=== PATIENT | female | born 1995 | race Caucasian/White ===

== ENCOUNTER 2023-03-02 12:37 | Emergency (ER) | payer MEDICAID ==
[~2023-03-02] VITALS: Ht 162.6 cm; Wt 127.3 kg
[2023-03-02 13:28] LABS: COVID AG,FIA SOURCE NASAL SWAB
[2023-03-02] MEDS ORDERED: 0.9% SODIUM CHLORIDE 10 ML SYRINGE IVP PRN (13:30)
[2023-03-02] MEDS ORDERED: ACETAMINOPHEN 1000 MG/ISO-OSM 100 ML IV ONE (13:30)
[2023-03-02] MEDS ORDERED: SODIUM CHLORIDE 0.9% 3,800 ML IV ONE (13:30)
[2023-03-02 13:52] LABS: INFLUENZA TYPE A NEGATIVE FOR TYPE A (NEGATIVE); INFLUENZA TYPE B NEGATIVE FOR TYPE B (NEGATIVE)
[2023-03-02 14:37] LABS: BASOPHILS % (AUTO) 0.2 % (0.0-2.0); EOSINOPHILS % (AUTO) 0.6 % (1.0-6.0); HEMOGLOBIN 12.6 g/dL (12.0-16.0); LYMPHOCYTES # (AUTO) 0.3 K/uL (1.0-4.8); LYMPHOCYTES % (AUTO) 5.3 % (22.0-44.0); MEAN CORPUSCULAR HEMOGLOBIN 31.8 pg (26.0-34.0); MEAN CORPUSCULAR VOLUME 94 fL (80-100); MONOCYTES # (AUTO) 0.3 K/uL (0.1-1.0); MONOCYTES % (AUTO) 5.5 % (2.0-9.0); NEUTROPHILS # (AUTO) 5.4 K/uL (1.8-7.7); PLATELET COUNT (AUTO) 158 K/uL (150-450); RED BLOOD CELL COUNT(AUTO) 3.96 MIL/uL (4.00-5.20); RED CELL DISTRIBUTION WIDTH 13.8 % (11.5-14.5)
[2023-03-02 14:44] LABS: ANION GAP 12 mmol/L (8-16); CALCIUM, TOTAL 8.8 mg/dL (8.8-10.5); CARBON DIOXIDE 23 mmol/L (22-29); CHLORIDE 103 mmol/L (98-107); CREATININE 0.85 mg/dL (0.60-1.30); GLOMERULAR FILTR. RATE CALC > 60 mL/min (>60); GLUCOSE,RANDOM 101 mg/dL (70-110); POTASSIUM 3.2 mmol/L (3.5-5.1); SODIUM SERUM 138 mmol/L (136-145)
[2023-03-02 14:49] LABS: INR 1.1 (0.9-1.1); PROTHROMBIN TIME 11.6 SEC (9.4-11.6)
[2023-03-02 14:55] LABS: ALANINE AMINOTRANSFERASE 22 U/L (12-78); ALBUMIN 3.9 g/dL (3.4-5.0); ALKALINE PHOSPHATASE 88 U/L (46-116); ASPARTATE AMINOTRANSFERASE 20 U/L (15-37); HCG,QUANTITATIVE < 1 mIU/mL (0-6); LIPASE 35 U/L (73-393); TOTAL PROTEIN, SERUM 7.6 g/dL (6.4-8.2)
[2023-03-02 15:05] LABS: B-TYPE NATRIURETIC PEPTIDE 35 pg/mL (0-100); LACTIC ACID 0.9 mmol/L (0.4-2.0)
[2023-03-02 15:12] LABS: NEUTROPHILS % (AUTO) 88.4 % (40.0-70.0); PLATELET MORPHOLOGY COMMENT LARGE PLTS PRESENT
[2023-03-02] MEDS ORDERED: POTASSIUM CHLORIDE 20 MEQ ER TABLET PO ONE (15:15)
[2023-03-02 16:15] VITALS: BP 115/75; PULSE 120; RESP 18; TEMP 102.7
[2023-03-02] MEDS ORDERED: NIRM1TAB4 PO (16:16)
== END 2023-03-02 16:49 | disposition home or self-care (01) ==
LOC: EMS 12:41
DX: U07.1 COVID-19 (principal); Z98.890 Other specified postprocedural states
CPT/HCPCS: 99291; 96365; 71045; 87426; 80053; 83605; 83690; 83880; 84484; 84702; 85025; 85610; 85730; 87040; 87804; 36415; 93005; 84145; J7030; J0131

== ENCOUNTER 2024-11-17 21:15 | Emergency (ER) | payer MEDICAID ==
[~2024-11-17] VITALS: Ht 154.9 cm; Wt 95.5 kg
[~2024-11-17 21:15] MED LIST: NIRM1TAB4 PO
[2024-11-17] MEDS: ACETAMINOPHEN 500 MG TABLET PO ONE (22:45)
[2024-11-17] MEDS: LIDOCAINE 1% 10 ML VIAL SQ ONE (22:45)
[2024-11-17] MEDS: CEPHALEXIN MONOHYDRATE 500 MG CAPSULE PO ONE (22:46)
[2024-11-17] MEDS: IBUPROFEN 600 MG TABLET PO ONE (22:46)
[2024-11-18] VITALS: BP 127/75; PULSE 71; RESP 16; TEMP 97.3; O2SAT 98
[2024-11-18] MEDS ORDERED: ACET-66 PO (00:20)
[2024-11-18] MEDS ORDERED: CEPH-558 PO (00:20)
[2024-11-19] MEDS ORDERED: PERCT PO (13:13)
== END 2024-11-18 00:36 | disposition home or self-care (01) ==
LOC: EMS 21:15
DX: S00.432A Contusion of left ear, initial encounter (principal); Z98.890 Other specified postprocedural states; X58.XXXA Exposure to other specified factors, initial encounter; Y93.89 Activity, other specified; Y92.89 Other specified places as the place of occurrence of the external cause; Y99.8 Other external cause status
CPT/HCPCS: 10140; 99284; J3490

== ENCOUNTER 2024-11-19 09:57 | Emergency (ER) | payer MEDICAID ==
[~2024-11-19] VITALS: Ht 157.5 cm; Wt 95.5 kg
[~2024-11-19 09:57] MED LIST changes: +ACET-66 PO; +CEPH-558 PO
[2024-11-19 10:24] VITALS: TEMP 98.2
[2024-11-19 11:41] VITALS: BP 112/71; PULSE 80; RESP 16; O2SAT 98
[2024-11-19] MEDS ORDERED: PERCT PO (13:13)
== END 2024-11-19 13:35 | disposition home or self-care (01) ==
LOC: EMS 09:58
DX: S00.432D Contusion of left ear, subsequent encounter (principal); Z98.890 Other specified postprocedural states; X58.XXXD Exposure to other specified factors, subsequent encounter
CPT/HCPCS: 99281; 99283

== ENCOUNTER 2025-03-25 09:09 | Emergency (ER) | payer MEDICAID, OTHER ==
[~2025-03-25] VITALS: Ht 154.9 cm; Wt 84.8 kg
[~2025-03-25 09:09] MED LIST changes: +PERCT PO
[2025-03-25 09:17] VITALS: TEMP 98.1
[2025-03-25 09:44] LABS: PLATELET COUNT (AUTO) 254 K/uL (150-450); RED BLOOD CELL COUNT(AUTO) 4.30 MIL/uL (4.00-5.20); RED CELL DISTRIBUTION WIDTH 15.9 % (11.5-14.5); WHITE BLOOD COUNT (AUTO) 6.5 K/uL (4.5-11.0)
[2025-03-25 09:50] LABS: CALCIUM, TOTAL 8.7 mg/dL (8.8-10.5); CREATININE 0.80 mg/dL (0.60-1.30); GLOMERULAR FILTR. RATE CALC > 60 mL/min (>60); GLUCOSE,RANDOM 95 mg/dL (70-110); SODIUM SERUM 139 mmol/L (136-145); UREA NITROGEN, BLOOD 11 mg/dL (7-18)
[2025-03-25] MEDS ORDERED: PRED-554 PO (11:54)
[2025-03-25] MEDS ORDERED: PERM60CR4 TP (11:54)
[2025-03-25] MEDS ORDERED: DIPH50CA37 PO (11:54)
[2025-03-25 12:25] VITALS: BP 121/82; PULSE 75; RESP 18; O2SAT 97
== END 2025-03-25 12:26 | disposition home or self-care (01) ==
LOC: EMS 09:09
DX: R59.1 Generalized enlarged lymph nodes (principal); L30.9 Dermatitis, unspecified; Z98.890 Other specified postprocedural states; Z98.84 Bariatric surgery status; Z79.899 Other long term (current) drug therapy
CPT/HCPCS: 99283; 80048; 84703; 85025; 36415; J7512

== ENCOUNTER 2025-03-26 06:54 | Emergency (ER) | payer OTHER ==
[~2025-03-26] VITALS: Ht 154.9 cm; Wt 85.0 kg
[~2025-03-26 06:54] MED LIST changes: +DIPH50CA37 PO; +PERM60CR4 TP; +PRED-554 PO
[2025-03-26 07:18] VITALS: TEMP 97.9
[2025-03-26] MEDS ORDERED: LIDOCAINE/PF 1% 30 ML VIAL ONE (09:57)
[2025-03-26 10:47] VITALS: BP 118/68; PULSE 95; RESP 16; O2SAT 96
== END 2025-03-26 11:07 | disposition home or self-care (01) ==
LOC: EMS 07:02
DX: R59.1 Generalized enlarged lymph nodes (principal); Z79.52 Long term (current) use of systemic steroids; Z98.84 Bariatric surgery status; Z98.890 Other specified postprocedural states; Z79.899 Other long term (current) drug therapy
CPT/HCPCS: 21550; 76942; 76999; 87015; 87206; 99284; J3490